=== PATIENT | female | born 1955 | race Caucasian/White ===

== ENCOUNTER → 2016-09-03 | Outpatient (CLI) | payer BC, OTHER ==
--- NOTE | 2016-09-04 02:49 | REP ---
Clinical: Pain. Technique: AP and frog lateral views to the left hip. Findings: Age-related degenerative changes include increased sclerosis to the acetabular roof with subtle marginal spurring and mild joint space narrowing. No obvious acute or healed fracture identified. Surrounding soft tissues unremarkable. No periarticular calcifications. Impression: Age-related degenerative changes as described above. Signed by Kam Ventura MD 09/04/2016 02:40 A
== END ==
LOC: M WUC 11:52
PROVIDERS: ATTEND Nurse Practitioner Family
DX: M16.12 Unilateral primary osteoarthritis, left hip (principal)

== ENCOUNTER → 2017-07-04 | Outpatient (CLI) | payer BC ==
--- NOTE | 2017-07-04 11:07 | REPMRS ---
Patient History The patient states she had a clinical breast exam in Patient is postmenopausal and has history of other cancer. Family history of ovarian cancer in sister at age 50, breast cancer in 2 maternal cousins under age 50, and colorectal cancer in brother at age 50 or over. Took estrogen for 14 years. [facility] Screen Mammo: July 04, 2017 - Exam #: [id number] Bilateral CC and MLO view(s) were taken. Technologist: Nicole Hartley, Technologist Prior study comparison: January 22, 2016, digital woman screen mammo performed at [facility]. December 16, 2014, digital woman screen mammo performed at [facility]. December 14, 2013, digital woman screen mammo performed at [facility]. FINDINGS: There are scattered fibroglandular densities. There has been no change in the appearance of the mammogram from the prior studies. There is a mild amount of scattered fibroglandular density which is fairly symmetric. There is no interval development of dominant mass, architectural distortion, or clustered microcalcification suggestive of malignancy. ASSESSMENT: BI-RADS/ACR category 1 mammogram. Negative. Recommendation Routine screening mammogram in 1 year (for women over age 40). This mammogram was interpreted with the aid of an FDA-approved computer-aided dectection system. Electronically Signed By: Delmer Yanez MD 07/04/17 [id number]
== END ==
LOC: M WHC 09:47
PROVIDERS: ATTEND Nurse Practitioner Women's Health
DX: Z12.31 Encounter for screening mammogram for malignant neoplasm of breast (principal)

== ENCOUNTER → 2017-07-04 | Outpatient (REF) | payer OTHER | LOC: M SFHCWAGY 15:07 | PROVIDERS: ATTEND Nurse Practitioner Women's Health | DX: Z12.4 Encounter for screening for malignant neoplasm of cervix (principal) ==

== ENCOUNTER → 2018-07-07 | Outpatient (CLI) | payer BC | LOC: M WHC 08:54 | DX: Z12.31 Encounter for screening mammogram for malignant neoplasm of breast (principal); Z78.0 Asymptomatic menopausal state; Z85.00 Personal history of malignant neoplasm of unspecified digestive organ; Z92.23 Personal history of estrogen therapy; Z80.0 Family history of malignant neoplasm of digestive organs; Z80.41 Family history of malignant neoplasm of ovary | CPT/HCPCS: 77067 ==

== ENCOUNTER → 2018-07-10 | Outpatient (CLI) | payer BC | LOC: M WHC 14:13 | DX: Z78.0 Asymptomatic menopausal state (principal); E28.319 Asymptomatic premature menopause | CPT/HCPCS: 77080 ==